=== PATIENT | male | born 1975 ===

== ENCOUNTER 2018-02-13 13:35 | Emergency (ER) | payer BC, OTHER ==
[2018-02-13 13:50] VITALS: BP 118/71
--- NOTE | 2018-02-13 13:55 | UC ---
Back Pain HPI - HPI Summary HPI Summary: Pt presents with low back pain. He tells me that about 1 hour [employer] he was sledding with his daughter at the [facility]. He hit a bump and landed on the snow, but felt something hard underneath the snow when he landed. Since that time has had severe low back pain. He is able to ambulate, but with a significant limp. Has not taken anything for pain. Denies numbness, tingling, radiation of pain, dysuria, loss of bowel/bladder control. - History of Current Complaint Chief Complaint: UCBackPain Stated Complaint: LOWER BACK PAIN Hx Obtained From: Patient Severity Initially: Severe Severity Currently: Severe Pain Intensity: 9 Pain Scale Used: 0-10 Numeric Aggravating Factor(s): Movement Alleviating Factor(s): Position - Allergies/Home Medications Allergies/Adverse Reactions: Allergies Allergy/AdvReac Type Severity Reaction Status Date / Time No Known Allergies Allergy Verified 02/13/18 13:42 Home Medications: Home Medications NK [No Home Medications Reported] 02/13/18 [History Confirmed 02/13/18] PMH/Surg Hx/FS Hx/Imm Hx Previously Healthy: Yes - Surgical History Surgical History: None - Family History Known Family History: Positive: None - Social History Occupation: Employed Full-time Lives: With Family Alcohol Use: Daily Substance Use Type: None Smoking Status (MU): Never Smoked Tobacco Review of Systems Constitutional: Negative Skin: Negative Respiratory: Negative Cardiovascular: Negative Gastrointestinal: Negative Genitourinary: Negative Neurovascular: Negative Musculoskeletal: Other: - Low back pain Neurological: Negative Psychological: Negative All Other Systems Reviewed And Are Negative: Yes Physical Exam - Summary Physical Exam Summary: GENERAL: NAD. WDWN. No pain distress. SKIN: No rashes, sores, ulcers, masses, lesions. NECK: Supple. FROM. Nontender. No lymphadenopathy. CHEST: CTAB. No r/r/w. No accessory muscle use. Breathing comfortably and in no distress. CV: RRR. Without m/r/g. Pulses intact. Brisk cap refill. MSK: TTP over L1-L2 vertebral spine. Positive SLR b/l. Unable to proceed further with exam due to pain NEURO: Alert. CN II-XII grossly intact. Sensations intact B/L LEs L3-S1. PSYCH: Age appropriate behavior. Triage Information Reviewed: Yes Vital Signs: Initial Vital Signs Temp 97.9 F 02/13/18 13:42 Pulse 74 02/13/18 13:42 Resp 16 02/13/18 13:42 BP 118/71 02/13/18 13:42 Pulse Ox 96 02/13/18 13:42 Back Pain Course/Dx - Course Course Of Treatment: XR: IMPRESSION: Compression deformity of the L1 vertebral body. Please correlate to the focality of the patient's back pain. I spoke with Dr. Fitch from neurosurgery and he recommened a CT scan of the spine for further eval. I advised the pt to report to the [facility] ED for further evaluation as no CT is available here at Urgent Care. He was agreeable to this plan and his will drive him. - Differential Dx/Diagnosis Provider Diagnoses: Compression fracture of L1 Discharge - Discharge Plan Condition: Stable Disposition: OTHER Discharge Disposition Comment: To [facility] by private vehicle Referrals: No Primary Care Phys,NOPCP [Primary Care Provider] - Additional Instructions: Please go directly to the [facility] Emergency Room. If you experiencing worsening symptoms - please cable puller and call 911
[2018-02-13] MEDS ORDERED: Ketorolac INJ* 30 MG/ML 1 ML VIAL IM ONE (14:03)
--- NOTE | 2018-02-13 14:48 | RAD ---
INDICATION: Low back pain after a sledding injury COMPARISON: None. TECHNIQUE: 5 views of the lumbar spine were obtained. FINDINGS: There is a compression deformity of the L1 vertebral body. The remaining vertebral bodies are intact and appropriately aligned. The intervertebral disc heights are maintained. IMPRESSION: Compression deformity of the L1 vertebral body. Please correlate to the focality of the patient's back pain.
== END 2018-02-13 15:40 ==
LOC: UCEAST 13:35
DX: S32.010A Wedge compression fracture of first lumbar vertebra, initial encounter for closed fracture (principal); X58.XXXA Exposure to other specified factors, initial encounter; Y93.23 Activity, snow (alpine) (downhill) skiing, snowboarding, sledding, tobogganing and snow tubing; Y92.89 Other specified places as the place of occurrence of the external cause
CPT/HCPCS: 72110; 96372; 99202; G0463; J1885

== ENCOUNTER 2018-02-13 15:53 | Emergency (ER) | payer OTHER ==
[2018-02-13 16:04] VITALS: BP 121/82
[2018-02-13] MEDS ORDERED: NS 0.9% 1000 ML* 1,000 ML IV ONE (16:52)
[2018-02-13 17:08] LABS: ABS Basophils 0.1 10^3/ul (0-0.2); ABS Eosinophils 0 10^3/ul (0-0.6); ABS Lymphocytes 0.8 10^3/ul (1.0-4.8); ABS Monocytes 0.7 10^3/ul (0-0.8); ABS Neutrophils 14.6 10^3/ul (1.5-7.7); ABS Nucleated RBC 0 10^3/ul; Eosinophil % 0.1 % (0-6); Hematocrit 43 % (42-52); Hemoglobin 14.3 g/dl (14.0-18.0); Lymphocyte % 4.7 % (25-47); Mean Corpuscular HGB Conc 34 g/dl (31-36); Mean Corpuscular Hemoglobin 29 pg (27-31); Mean Corpuscular Volume 88 fL (80-94); Mean Platelet Volume 9 um3 (7.4-10.4); Nucleated Red Blood Cells % 0; Platelet Count 191 10^3/ul (150-450); Red Blood Count 4.86 10^6/ul (4.0-5.4); Red Cell Distribution Width 13 % (10.5-15); White Blood Count 16.1 10^3/ul (3.5-10.8)
[2018-02-13 17:24] LABS: EGFR Non-African American 90.2 (>60)
[2018-02-13 17:42] LABS: INR 0.91 (0.77-1.02)
--- NOTE | 2018-02-13 18:06 | RAD ---
CLINICAL HISTORY: Low back pain after a sledding injury. COMPARISON: None TECHNIQUE: Noncontrast CT examination of the abdomen and pelvis from the lung bases through the initial tuberosities. Reformats of the lumbar spine were created and specifically reviewed independently. FINDINGS: VISUALIZED LUNG BASES: The visualized lung bases are grossly clear. There is no pleural effusion. ABDOMEN AND PELVIS: Evaluation of the solid organs and vasculature is limited without intravenous contrast. Along the medial margin of the right lobe of the liver (image 23) there is a 5 mm calcified focus of doubtful clinical concern. The liver is otherwise homogenous in attenuation without signs of acute bleeding or fracture. The spleen, pancreas and adrenal glands are grossly normal in appearance. The gallbladder is normal. The kidneys are normal in appearance without focal mass, calcification or signs of hydronephrosis. Evaluation of the gastrointestinal tract is limited without oral contrast. The small and large bowel are not distended.The patient's normal appendix is identified in the right lower quadrant (coronal image 19). There is no gross retroperitoneal or mesenteric lymphadenopathy. At the left of midline prostate gland there is a 7 mm hypoattenuating focus with a density greater than that of a simple cyst (axial image 75). The abdominal aorta and iliac arteries are normal in course and diameter. As was seen on the same day radiograph there is a compression deformity of the L1 vertebral body exhibiting slightly less than 50% degree compression. There is a mild degree of comminution at the right of midline anterior vertebral body cortex. There is no large retropulsion of fragments. There is no hyperdense material thecal canal to indicate acute hemorrhage. The remaining vertebral bodies are otherwise intact and appropriately aligned. IMPRESSION: 1. Acute compression fracture of the L1 vertebral body as described above. 2. There is a poorly defined 7 mm hypoattenuating focus at the left of midline prostate gland. Please correlate to any prostate symptoms and/or BPH levels. If clinically warranted superior characterization of the prostate gland could be made on a nonemergent basis with transperineal ultrasound or MRI.
[2018-02-13] MEDS ORDERED: HYDROcodone/ACETAMIN 5-325 MG* 1 TAB PO ONE (19:03)
--- NOTE | 2018-02-13 19:36 | ED ---
Tim Contreras Tiffany, scribed for Laurent Wilson MD on 02/13/18 at 1657 . Back Pain - HPI Summary HPI Summary: The patient is a 42 year old M referred from [facility] to [facility] for further evaluation c/o lower back pain s/p hitting his back while sledding hours ago. The patient rates the pain 6/10 in severity. Symptoms aggravated by nothing. Symptoms alleviated by nothing. Denies neck pain, chest pain, shortness of breath, arm pain, abdominal pain, loss of consciousness, leg pain, leg numbness. X-ray report from [facility] noted L1 compression deformity. 30mg of toradol IM at at 1400. - History of Current Complaint Chief Complaint: EDBackInjuryPain Stated Complaint: BACK PAIN/CT SCAN Time Seen by Provider: 02/13/18 16:46 Hx Obtained From: Patient Onset/Duration: Sudden Onset, Lasting Hours, Still Present Onset/Duration: Started Hours Ago Timing: Constant Back Pain Location: Is Diffuse - Lower Severity Currently: Moderate Pain Intensity: 6 Pain Scale Used: 0-10 Numeric Aggravating Symptom(s): Nothing Alleviating Symptom(s): Nothing Associated Signs And Symptoms: Positive: Negative - neck pain, chest pain, shortness of breath, arm pain, abdominal pain, loss of consciousness, leg pain, leg numbness - Allergies/Home Medications Allergies/Adverse Reactions: Allergies Allergy/AdvReac Type Severity Reaction Status Date / Time No Known Allergies Allergy Verified 02/13/18 13:42 PMH/Surg Hx/FS Hx/Imm Hx Previously Healthy: Yes Endocrine/Hematology History: Denies: Hx Diabetes Cardiovascular History: Denies: Hx Congestive Heart Failure, Hx Pacemaker/ICD Sensory History: Denies: Hx Deafness, Hx Hearing Aid, Hx Hearing Problem EENT History: Denies: Hx Deafness, Hx Hearing Problem, Hx Hearing Aid Psychiatric History: Denies: Hx Panic Disorder - Surgical History Surgery Procedure, Year, and Place: None Infectious Disease History: No Infectious Disease History: Denies: Traveled Outside the [place] in Last 30 Days - Family History Known Family History: Positive: Other - No relevant family history - Social History Alcohol Use: Daily Hx Substance Use: No Substance Use Type: Reports: None Hx Tobacco Use: No Smoking Status (MU): Never Smoked Tobacco Review of Systems Negative: Chest Pain Negative: Shortness Of Breath Negative: Abdominal Pain Musculoskeletal: Negative - Neck pain, arm pain, leg pain Positive: Other - Lower back pain, X-ray report from [facility] noted L1 compression deformity Neurological: Negative - LOC, leg numbness All Other Systems Reviewed And Are Negative: Yes Physical Exam - Summary Physical Exam Summary: General: well-appearing, no pain distress Skin: warm, color reflects adequate perfusion, dry Head: normal Eyes: EOMI, LUTHER ENT: normal Neck: supple, nontender Back: Tenderness in middle and lower back Respiratory: CTA, breath sounds present Cardiovascular: RRR Abdomen: soft, nontender Bowel: present Musculoskeletal: normal, strength/ROM intact Neurological: normal, sensory/motor intact, A&O x3 Psychological: affect/mood appropriate Triage Information Reviewed: Yes Vital Signs On Initial Exam: Initial Vitals Temp Pulse Resp BP Pulse Ox 98.6 F 85 14 121/82 96 02/13/18 16:01 02/13/18 16:01 02/13/18 16:01 02/13/18 16:01 02/13/18 16:01 Vital Signs Reviewed: Yes Diagnostics - Vital Signs Vital Signs Temp Pulse Resp BP Pulse Ox 02/13/18 16:01 98.6 F 85 14 121/82 96 - Laboratory Lab Results: Lab Results 02/13/18 02/13/18 02/13/18 Range/Units 16:55 16:55 17:11 WBC 16.1 H (3.5-10.8) 10^3/ul RBC 4.86 (4.0-5.4) 10^6/ul Hgb 14.3 (14.0-18.0) g/dl Hct 43 (42-52) % MCV 88 (80-94) fL MCH 29 (27-31) pg MCHC 34 (31-36) g/dl RDW 13 (10.5-15) % Plt Count 191 (150-450) 10^3/ul MPV 9 (7.4-10.4) um3 Neut % (Auto) 90.4 H (38-83) % Lymph % (Auto) 4.7 L (25-47) % Burnett % (Auto) 4.5 (0-7) % Eos % (Auto) 0.1 (0-6) % Baso % (Auto) 0.3 (0-2) % Absolute Neuts (auto) 14.6 H (1.5-7.7) 10^3/ul Absolute Lymphs (auto) 0.8 L (1.0-4.8) 10^3/ul Absolute Monos (auto) 0.7 (0-0.8) 10^3/ul Absolute Eos (auto) 0 (0-0.6) 10^3/ul Absolute Basos (auto) 0.1 (0-0.2) 10^3/ul Absolute Nucleated RBC 0 10^3/ul Nucleated RBC % 0 INR (Anticoag Therapy) 0.91 (0.77-1.02) APTT 29.4 (26.0-36.3) seconds Sodium 137 (133-145) mmol/L Potassium 3.8 (3.5-5.0) mmol/L Chloride 105 (101-111) mmol/L Carbon Dioxide 25 (22-32) mmol/L Anion Gap 7 (2-11) mmol/L BUN 16 (6-24) mg/dL Creatinine 0.92 (0.67-1.17) mg/dL Est GFR ( Amer) 116.0 (>60) Est GFR (Non-Af Amer) 90.2 (>60) BUN/Creatinine Ratio 17.4 (8-20) Glucose 101 H (70-100) mg/dL Calcium 9.7 (8.6-10.3) mg/dL Total Bilirubin 0.80 (0.2-1.0) mg/dL AST 19 (13-39) U/L ALT 12 (7-52) U/L Alkaline Phosphatase 91 (34-104) U/L Total Protein 7.2 (6.4-8.9) g/dL Albumin 4.3 (3.2-5.2) g/dL Globulin 2.9 (2-4) g/dL Albumin/Globulin Ratio 1.5 (1-3) Lipase 24 (11.0-82.0) U/L Result Diagrams: 02/13/18 16:55 02/13/18 16:55 Lab Statement: Any lab studies that have been ordered have been reviewed, and results considered in the medical decision making process. - Radiology L-Spine Radiology Interpretation Completed By: Radiologist - 1. Acute compression fracture of the L1 vertebral body as described above. 2. There is a poorly defined 7 mm hypoattenuating focus at the left of midline prostate gland. Please correlate to any prostate symptoms and/or BPH levels. If clinically warranted superior characterization of the prostate gland could be made on a nonemergent basis with transperineal ultrasound or MRI. ED physician has reviewed this report. - CT Abd/Pel CT Interpretation Completed By: Radiologist - 1. Acute compression fracture of the L1 vertebral body as described above. 2. There is a poorly defined 7 mm hypoattenuating focus at the left of midline prostate gland. Please correlate to any prostate symptoms and/or BPH levels. If clinically warranted superior characterization of the prostate gland could be made on a nonemergent basis with transperineal ultrasound or MRI. ED physician has reviewed this report. Back Pain Course/Dx - Course Course Of Treatment: BP noted and advised to follow up with PCP. DISCUSSED RESULTS WITH PATIENT. DISCUSSED WITH NEUROSURGERY, DR DIAZ. F/U WITH NEUROSURGERY; RETURN IF WORSE. - Diagnoses Provider Diagnoses: Compression fracture of L1 lumbar vertebra Discharge - Discharge Plan Condition: Stable Disposition: HOME Prescriptions: HYDROcodone/ACETAMIN 5-325 MG* [Lenorah 5-325 TAB*] 1 tab PO Q4H PRN #20 tab MDD 6 PRN Reason: Pain Ibuprofen TAB* [Motrin TAB* 600 MG] 600 mg PO Q6H PRN #30 tab PRN Reason: Pain Patient Education Materials: Thoracolumbar Fracture (ED) Referrals: Kolton Diaz MD [Medical Doctor] - Additional Instructions: FOLLOW UP WITH DR DIAZ ([phone]), NEUROSURGERY, ON THURSDAY MORNING, . HE WILL ARRANGE YOU GETTING A BACK BRACE. DRINK PLENTY OF WATER TO HELP AVOID CONSTIPATION. RETURN TO THE EMERGENCY DEPARTMENT FOR ANY WORSENING OF YOUR CONDITION; PAIN, WEAKNESS, NUMBNESS, DIFFICULTY CONTROLLING BOWEL OR BLADDER OR QUESTIONS OR CONCERNS. The documentation as recorded by the Tim dubose Tiffany accurately reflects the service I personally performed and the decisions made by me, Laurent Wilson MD.
== END 2018-02-13 19:48 | disposition home or self-care (01) ==
LOC: ED 15:53
DX: S32.019A Unspecified fracture of first lumbar vertebra, initial encounter for closed fracture (principal); M54.5 Low back pain; W22.8XXA Striking against or struck by other objects, initial encounter; Y93.23 Activity, snow (alpine) (downhill) skiing, snowboarding, sledding, tobogganing and snow tubing; Y92.9 Unspecified place or not applicable
CPT/HCPCS: 36415; 72131; 74176; 80053; 83690; 85025; 85610; 85730; 96360; 99282